=== PATIENT | male | born 1960 | race Two or more races ===

== ENCOUNTER → 2024-11-24 | Outpatient (CLI) | payer MEDICAID, SELFPAY ==
--- NOTE | 2024-11-24 13:30 | XR_ITS ---
Examination: Abdomen sonogram, Limited Date and time of exam: November 24, 2024 1351 hours INDICATIONS: Palpable lump in the right groin beginning 2 years ago Technique: Real-time colon scale transabdominal sonographic images of the upper abdomen obtained. Findings: Right groin hernia defect with peristalsis 2.5 cm IMPRESSION: Bowel containing right inguinal hernia defect, consider CT pelvis without contrast follow-up
== END | disposition home or self-care (01) ==
LOC: CDIM 13:21
PROVIDERS: Referring Provider Nurse Practitioner; Visit Provider Nurse Practitioner
DX: K40.90 Unilateral inguinal hernia, without obstruction or gangrene, not specified as recurrent (principal)
CPT/HCPCS: 76705

== ENCOUNTER 2025-01-31 08:10 | Day surgery (SDC) | payer MEDICAID, SELFPAY ==
--- NOTE | 2025-01-30 06:40 | EKG_ITS ---
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
[2025-01-30 10:54] VITALS: BMI 32.1
[2025-01-30 11:59] LABS: Basophils # (Auto) 0.0 Thou/mm3 (0.0-0.2); Basophils % (Auto) 1 % (0-2.5); Eosinophils # (Auto) 0.1 Thou/mm3 (0.0-0.5); Eosinophils % (Auto) 3 % (0-10); Hematocrit 43.1 % (41.0-53.0); Hemoglobin 14.7 g/dL (13.5-16.0); Immature Granulocytes Auto 0.01 Thou/mm3 (0.00-0.00); Lymphocytes # (Auto) 2.0 Thou/mm3 (1.0-4.8); Lymphocytes % (Auto) 47 % (10-50); Mean Corpuscular HGB Conc 34.1 g/dl (31.0-37.0); Mean Corpuscular Hemoglobin 30.1 pg (25.0-35.0); Mean Corpuscular Volume 88 fL (80-100); Monocytes # (Auto) 0.4 Thou/mm3 (0.0-0.8); Monocytes % (Auto) 9 % (0-12); Neutrophils # (Auto) 1.7 Thou/mm3 (1.8-7.7); Neutrophils % (Auto) 40 % (37-80); Nucleated Red Blood Cell # 0.00 Thou/mm3 (0.00-0.00); Nucleated Red Blood Cell % 0 /100 WBC (0); Platelet Count 213 Thou/mm3 (140-440); RDW Standard Deviation 41.1 fL (35.1-43.9); Red Blood Count 4.89 Miln/mm3 (4.50-5.90); White Blood Count 4.2 Thou/mm3 (3.8-10.6)
[2025-01-30 12:06] LABS: INR 1.0 (0.9-1.3); Partial Thromboplastin Time 27.8 Seconds (22.0-36.0); Prothrombin Time 10.5 Seconds (9.0-12.2)
[2025-01-30 12:10] LABS: Alanine Aminotransferase 32 U/L (10-49); Albumin, Serum 4.7 gm/dL (3.4-4.8); Albumin/Globulin Ratio 1.6 (1.2-2.2); Alkaline Phosphatase 76 U/L (46-116); Anion Gap 9 (7-16); Aspartate Amino Transferase 31 U/L (0-34); BUN/Creatinine Ratio 14 Ratio (12-20); Bilirubin,Total 0.8 mg/dL (0.3-1.2); Blood Urea Nitrogen 11 mg/dL (9-23); Calcium 9.3 mg/dL (8.3-10.6); Calcium (Corrected) 9.3 mg/dL (8.5-10.1); Carbon Dioxide 26.6 mMol/L (20.0-31.0); Chloride 103 mMol/L (98-107); Creatinine (Component) 0.8 mg/dL (0.6-1.3); Estimated Creatinine Clearance 95.5 mL/min (>60); Globulin 3.0 gm/dL (2.3-3.5); Glucose 113 mg/dL (74-106); Osmolality,Calculated 277 (275-295); Potassium 4.6 mMol/L (3.4-5.1); Sodium 139 mMol/L (136-145); Total Protein 7.7 gm/dL (5.7-8.2); eGFR > 60 See Note
[2025-01-31] VITALS (10 sets, daily range): BP systolic 131–157; BP diastolic 72–95; PULSE 55–68; RESP 12–19; TEMP 36.4–36.8; O2SAT 95–100; BMI 31.9
[2025-01-31] MEDS: RINGERS LACTATED 1000 ML 1,000 ML 20 ML IV (08:59)
--- NOTE | 2025-01-31 09:25 | CHAP ---
Prakyed with patient before his procedure.
--- NOTE | 2025-01-31 11:59 | ESOP_ITS ---
Date of Procedure 01/31/25 Pre Op Diagnosis Symptomatic right inguinal hernia Post Op Diagnosis Symptomatic recurrent right inguinal hernia, indirect type Procedure Repair of the right indirect inguinal hernia with high ligation of the sac Findings Patient is found to have previous hernia repair done many years ago which the patient did not tell me. Patient was found to have a large indirect inguinal hernia with a sac firmly adherent to the cord structures. Procedure Description After the patient was given endotracheal anesthesia is lower abdomen was prepped with chloreprep solution and draped. Standard right groin incision was made in the external oblique was reached. Incision was made over the external oblique and the patient was found to have a large sac next to the cord structures. The cord structures were encircled around a Kelvin drain and the sac was easily . It was opened and was found to contain no contents. Patient had a large opening in this hernial sac in the mouth of the internal ring was narrow. I suture ligated this with 2-0 chromic and then divided. Another 2-0 chromic suture ligation was used to prevent any slippage of the previous suture. Then I palpated the floor of the inguinal canal which appeared to be strong. Because of the previous hernia repair it was difficult for me to assess the floor of the inguinal canal but I could feel the mesh in the region from the previous surgery. There was no need for me to reconstruct the floor because of the presence of mesh already there. I could not put any other mesh in the floor also. .. Then external oblique was closed with running 2-0 Vicryl and subcutaneous tissues was approximated with 30 plain I injected half percent Marcaine with epinephrine for analgesia and the skin was closed with 4-0 Monocryl. Dressing was applied with Adaptic and 4 x 4 and the patient tolerated the procedure well and left operating room in stable condition. Anesthesia GETA Pathology / specimen None Estimated Blood Loss 15 Surgeon Leilani Ruiz MD Surgical Staff Operation Date: 01/31/25 11:15 Case Staff [employer] APPRENTICE: Zachariah Youngblood RN First Assistant: Kasey Abel
--- NOTE | 2025-01-31 12:24 | SUR.PHASEI ---
1205: Pt received in [facility] via gurney. Report from Allyssa KIM and Omar HO. Pt obtunded. Oral airway in place. Resp even, unlabored. VS stable. Dressing to right groin dry, clean, intact. 1212: Oral airway dc'd. Resp even, unlabored.
[2025-01-31] MEDS: HYDROmorphone INJ 2 MG/ML VIAL 0.5 MG IVP (12:55)
--- NOTE | 2025-01-31 14:53 | SUR.PHASEII ---
1322: Assumed care. Pt has been resting. No further complaints of pain voiced. Stated pain level down and tolerable. VS stable. Dressing remains dry, clean, intact. 1346: Pt fully awake, oriented x3. Pt dressed. Assisted to restroom. Ambulation steady. Pt and son stated understanding of discharge instructions via hospital machine driller. Pt discharged from [facility] in stable condition.
== END 2025-01-31 13:46 | disposition home or self-care (01) ==
PROVIDERS: Referring Provider Surgery; Visit Provider Surgery
PROC: (CPT 49505; principal; 2025-01-31 11:00)
DX: K40.91 Unilateral inguinal hernia, without obstruction or gangrene, recurrent (principal); Z01.810 Encounter for preprocedural cardiovascular examination; E11.9 Type 2 diabetes mellitus without complications; Z79.84 Long term (current) use of oral hypoglycemic drugs
CPT/HCPCS: 49505; 36415; 80053; 85025; 85610; 85730; 93005; A4217; A4649; J0131; J1100; J1171; J2405; J2704; J3010; J3490; J7120; A9270